=== PATIENT | female | born 1955 | race Caucasian/White ===

== ENCOUNTER → 2017-01-13 | Day surgery (SDC) | payer OTHER ==
[2017-01-13] VITALS (11 sets, daily range): BP systolic 99–125; BP diastolic 60–74; PULSE 74–83; RESP 11–16; O2SAT 95–98
[~2017-01-13] VITALS: Ht 170.2 cm; Wt 77.7 kg
[~2017-01-13] MED LIST: 0.9% Sodium Chloride 250 ML BOLUS IV PRN; 0.9% Sodium Chloride 400 ML (4 HRS) IV ONE; Atropine 1 mg/10 mL (Code) Syringe IVPUSH PRN; CALC117719 PO; FURO-129 PO; Heparin 1,000 Units/500 mL NS Premix IV ONE; Heparin 10,000 Unit/1,000 mL NS Premix IV ONE; INDO50CA PO; OMEP20TA86 PO; Ondansetron 2 mg/mL 2 mL Inj IVPUSH PRN; PRAV10TA2 PO; Sodium Chloride LOK Flush 10 mL Syringe IVFLUSH PRN; TRAM50TA2 PO; fentaNYL-PF 50 mCg/mL 2 mL Inj ONE
[2017-01-13 12:36] LABS: BASOPHILS % (AUTO) 0.2 % (0-3); EOSINOPHILS % (AUTO) 1.8 % (0-5); MONOCYTES % (AUTO) 7.6 % (4-12); Mean Corpuscular Volume 87.1 fL (81-100); NEUTROPHILS % (AUTO) 55.6 % (40-74); Platelet Count 244 bil/L (150-400)
--- NOTE | 2017-01-13 13:19 | NUR ---
Admit [facility] Admitted to [facility] 8 about 1145. VSS. Tele SR. Denies pain. IVs started and labs sent. See EMR for further info and assessment. Procedure and recovery reviewed and verbalizes understanding. All communication through vice president of compliance. Awaiting labor supervisor.
--- NOTE | 2017-01-13 17:14 | NUR ---
Received Received from labor and delivery registered nurse at 1520. VSS. States minimal groin pain. Tylenol 975mg po given and states slightly helpful. Right groin without bleeding or hematoma. Groin precautions reviewed and frequent reminders given. Questions answered prn. Taking po well. IVF infusing per orders. Report to Yoseph Morse RN at 2595. Bedside check done.
--- NOTE | 2017-01-13 19:30 | NUR ---
Pt discharged to home, ambulatory, accompanied by family. Rt groin site tender but soft with no bleeding/hematoma noted. Pt's VSS, given all discharge instructions through family and portable sawmill operator. Pt had no further questions at time of d/c.
--- NOTE | 2017-01-17 10:11 | CS94 ---
[address] [address] DIAGNOSTIC CARDIAC CATHETERIZATION PATIENT: JAZMYN DOCKERY : 1955 MR#: [id number] ADMIT: 01/13/2017 JOB ID: [id number] SERVICE DATE: 01/13/2017 CHIEF COMPLAINT: Chest pain and abnormal stress test. PROCEDURES PERFORMED: 1. Left heart catheterization-selective coronary angiograms. 2. Right common femoral artery vascular access under ultrasound guidance. 3. Hemodynamic recording. METHOD: Following informed consent, the patient was prepped and draped in usual sterile fashion. A 6-Divehi sheath was placed in the right common femoral artery via femoral angiogram. Sheath placement was confirmed. JL4 and JR4 catheters were used to engage the left main and right coronary artery ostia, respectively. Hand injection craniocaudal angulation were used to obtain selective coronary angiograms. All exchanges were performed over a wire. FINDINGS: Right common femoral artery gives rise to SFA and profunda. The sheath enters the right common femoral artery at the upper 3rd of the femoral head. There is no contrast extravasation or dissection. The visualized portions of the SFA, profunda and common femoral artery are free of disease. CORONARY ANGIOGRAM: Left main is a normal caliber vessel, gives rise to LAD and circumflex. No obstructive lesions are seen. The left main gives rise to LAD, circumflex and ramus intermedius. No obstructive lesions are seen. The LAD gives rise to a large first diagonal branch, a large second diagonal branch, a large third diagonal branch. It is free of disease. The circumflex is a nondominant vessel. It gives rise to a small first OM, small second obtuse marginal branch and a very small third obtuse marginal branch. No obstructive lesions are seen. Ramus intermedius is a large vessel. It has no obstructive disease whatsoever. Right coronary artery is a normal caliber vessel, gives rise to PDA and posterolateral branch. No obstructive lesions are seen. FILLING PRESSURE: Filling pressure is 20 mmHg. There is no aortic stenosis based on pullback. Hemostasis-obtained via Angio-Seal closure device. IMPRESSION: No obstructive coronary artery disease. Her stress test is a false positive. Recommend Lasix to lower the filling pressure and see if that helps with her exertional dyspnea, and she is optimized for surgery from a cardiovascular standpoint. Thank you very much for the opportunity to evaluate her.
== END | disposition home or self-care (01) ==
LOC: SOUO 01:23
PROVIDERS: ATTEND Internal Medicine
DX: R94.39 Abnormal result of other cardiovascular function study (principal); R06.09 Other forms of dyspnea; E78.5 Hyperlipidemia, unspecified; I35.1 Nonrheumatic aortic (valve) insufficiency
CPT/HCPCS: 36415; 80048; 85025; 93005; 93458; 99152; C1760; C1769; J1200; J1644; J2060; J2250; J3010; J7030; Q9967

== ENCOUNTER 2017-01-23 21:26 | Emergency (ER) | payer OTHER ==
[~2017-01-23] VITALS: Ht 170.2 cm; Wt 77.7 kg
[~2017-01-23 21:26] MED LIST changes: -0.9% Sodium Chloride 250 ML BOLUS IV PRN; -0.9% Sodium Chloride 400 ML (4 HRS) IV ONE; -Atropine 1 mg/10 mL (Code) Syringe IVPUSH PRN; -Heparin 1,000 Units/500 mL NS Premix IV ONE; -Heparin 10,000 Unit/1,000 mL NS Premix IV ONE; -OMEP20TA86 PO; -Ondansetron 2 mg/mL 2 mL Inj IVPUSH PRN; -Sodium Chloride LOK Flush 10 mL Syringe IVFLUSH PRN; -fentaNYL-PF 50 mCg/mL 2 mL Inj ONE
[2017-01-23 21:34] VITALS: BP 178/108; PULSE 100; RESP 16; O2SAT 100
--- NOTE | 2017-01-23 23:03 | ED.REPORT ---
HPI-General Illness Date of Service Jan 23, 2017 ED Provider: Olman Rosen MD Pt is a 61 y/o female with a history of hypertension, and CHF who presents to ED c/o intermittent chest pain onset last night. She had a cardiac catheterization on 01/13/[address] Chan noticed increased filling pressure, otherwise the catheterization was normal. Echocardiogram was likewise normal. Additional symptoms include SOB, neck pain, dizziness, and abdominal bloating. She denies melena, hematochezia, dysuria, diaphoresis, nausea, vomiting, or diarrhea. She has had similar episodes of chest pain previously. Nursing Notes Stated Complaint: SOB,PRESSURE IN CHEST Chief Complaint: Chest Pain Nursing Notes Reviewed: Yes Allergies: Coded Allergies: aspirin (Verified Allergy, Severe, Dizziness, 01/23/17) methocarbamol (Verified Allergy, Severe, Abdominal Pain, 01/23/17) oxycodone (Verified Allergy, Severe, Dizziness, 01/23/17) Scheduled Furosemide (Lasix) 20 Mg Tablet 20 MG PO DAILY Omeprazole (Omeprazole) 20 Mg Tablet.dr 20 MG PO BID Pravastatin (Pravastatin) 10 Mg Tablet 10 MG PO HS Scheduled PRN Calcium Carbonate (Tums Ultra Strength) 1,177 Mg Tab.chew 2,000 MG PO PRN For Dyspepsia or Heartburn Indomethacin (Indomethacin) 50 Mg Capsule 50 MG PO TID PRN PRN For Pain Tramadol (Tramadol) 50 Mg Tablet 50 MG PO Q12HR PRN PRN For Pain General Time Seen by MD: 23:03 Chief Complaint Chest pain Hx Obtained From: Patient, Son Arrived By: Walk-in Sudden in Onset?: No Onset Occurred: Yesterday Symptom Duration: Intermittent Location: : Chest Quality: Painful Radiation: : Does not radiate Severity: Current: Mild Severity: Maximum: Moderate Recent Healthcare: Recent doctor visit, Recent hospitalization Similar Sx Previous: No Past Medical History Past Medical History Notes: 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 canal Past Medical History Heart attack Back injury Depression Reports: Congestive heart failure, Coronary artery disease, Hypertension Past Surgical History Cardiac catheterization on 01/13/17 Eye surgery Pterygium removal Reports: Hysterectomy Smoking History Never Smoker Social History Alcohol Use: Denies alcohol use Drug Use: Denies drug use Other Social History: Good social support Ambulatory Status Independent Review of Systems Abdominal bloating Full Review of Systems Respiratory: Reports: Shortness of breath Cardiovascular: Reports: Chest pain (intermittent) GI: Denies: Diarrhea, Hematochezia, Melena, Nausea, Vomiting Female: Denies: Dysuria Musculoskeletal: Reports: Neck pain Skin: Denies Diaphoresis Neurologic: Reports: Dizziness Complete sys rev & neg: except as marked. Physical Exam Vital Signs Vital Signs Date Time Temp Pulse Resp B/P Pulse Ox O2 Delivery O2 Flow Rate FiO2 01/24/17 02:07 36.8 78 16 148/82 98 Room Air 01/23/17 21:34 36.8 100 16 178/108 100 Room Air Initial VS: Reviewed Head / Eyes: Atraumatic, Normocephalic Neck: Supple, Full range of motion Abdomen / GI: Soft, Non-tender Extremities: Vascular intact, Neuro intact, No swelling, No tenderness Skin: Warm, Dry, No cyanosis Neurologic: Alert, Oriented, Nonfocal Psychiatric: Mood/affect normal, Behavior normal, Normal thought content General/Constitutional: Awake, Alert Respiratory / Chest: Atraumatic, Breath sounds NL, Breath sounds = bilat, No respiratory distress Cardiovascular: Heart rate NL, Regular rhythm, Heart sounds NL Interpretation & Diagnostics CT PULMONARY ANGIOGRAM Conclusion: No evidence of pulmonary embolism or aortic dissection. Interpret - Radiologist Lab Results Interpretation Result Diagram: 01/23/17 2300 01/23/17 2300 Test 01/23/17 23:00 01/23/17 23:03 01/24/17 01:22 White Blood Count 8.5th/mm3 (3.8-10.1) Red Blood Count 4.64mil/mm3 (3.90-5.20) Hemoglobin 13.9g/dL (12.0-15.6) Hematocrit 39.8% (35.0-46.0) Mean Corpuscular Volume 85.8fL (81-100) Mean Corpuscular Hemoglobin 30.0pg (27.0-35.0) Mean Corpuscular Hemoglobin Concent 34.9% (32.0-37.0) Red Cell Distribution Width 12.6% (12.3-15.4) Platelet Count 276bil/L (150-400) Neutrophils (%) (Auto) 60.7% (40-74) Lymphocytes (%) (Auto) 30.3% (14-46) Monocytes (%) (Auto) 7.0% (4-12) Eosinophils (%) (Auto) 1.5% (0-5) Basophils (%) (Auto) 0.4% (0-3) D-Dimer 0.76mg/L FEU (<0.50) Sodium Level 136mEq/L (134-144) Potassium Level 4.1mEq/L (3.5-5.2) Chloride Level 98mEq/L (97-108) Carbon Dioxide Level 20mmol/L (18-29) Blood Urea Nitrogen 22mg/dL (8-27) Creatinine 0.89mg/dL (0.57-1.00) Estimat Glomerular Filtration Rate 92mL/min (>59) Glucose Level 124mg/dL (60-99) Calcium Level 9.1mg/dL (8.5-10.1) Magnesium Level 2.0mg/dL (1.6-2.6) Total Bilirubin 0.4mg/dL (0.0-1.2) Aspartate Amino Transf (AST/SGOT) 45U/L (0-50) Alanine Aminotransferase (ALT/SGPT) 42U/L (0-32) Alkaline Phosphatase 107U/L (25-165) Troponin T < 0.010ug/L (0.0-0.011) Pro-B-Type Natriuretic Peptide 54.34pg/mL (0-287) Total Protein 7.5g/dL (6.4-8.4) Albumin 4.4g/dL (3.4-5.0) Hold Leonardo Top Tube Received (Received) Hold Urine Received (Received) ECG Interpretation ECG Interpretation: Sinus rhythm, rate 93 Time: 21:52 Interpreted by: ED physician X-Ray Chest Interpretation Chest Xray Interpretation: Normal: no cardiomegaly or pneumonia appreciated View: Portable, 1 view Interpretation / Wet Read by: Wet read ED physician Re-Eval/Medical Decision Med Decision/Clinical Course 61-year-old presents with some sense of breathlessness and pressure, basically continuously for the past three days. Recent catheterization was completely clean. An echo was negative. Stress echo raise some question of mild hypokinesis in the posteroinferior area, but this was not borne out by regular echo nor by cath. She does not appear to have any significant cardiac disease. Mild increase in LV filling pressures noted and may have been secondary to fluid overload. She has responded to Lasix, but continues to have intermittent discomfort of the same sort. D-dimer was elevated but a CT angiogram is negative. I suspect, after all this and on, that her symptoms are esophageal in nature. Begun with omeprazole twice a day. Follow-up with Dr. Chan. Return promptly for any worsening symptoms or other new symptoms of concern. Source of Hx: Old records Time of Eval: 01:55 Patient Status: Condition improved Re-Evaluation/Progress Note: Patient rechecked. Discussed plan for discharge. Patient understands and agrees with plan. F/U instructions and RTER warnings given. All questions addressed at this time. Counseled Regarding: Diagnosis, Lab results, Need for follow-up, When/why to return to ED Discharge & Departure Shift Change Sign-Out Response to Therapy: Improved Primary Impression: Non-cardiac chest pain Additional Impression: Esophageal spasm Disposition: Home Discharge Condition All VS Reviewed: Yes Condition: Stable Patient Instructions: Noncardiac Chest Pain (ED) Additional Instructions: Your catheterization test was completely normal. There was no evidence of any blockage anywhere in the heart. They noted some slight increase in the filling pressures of your ventricle, and the Lasix is aimed at reducing that. There is also no evidence of clot in your lung. There is no evidence of any other dangerous cause for her discomfort. Follow-up with your doctor in the office. Return if any new symptoms of concern develop. In the meantime, I recommend suppression of your stomach acid, as esophageal spasm from reflux can cause very similar symptoms. La prueba de cateterizacin fue completamente normal. No haba evidencia de cindy n bloqueo en el corazn. Notaron un ligero aumento en las presiones de llenado de ruano ventrculo, y el Lasix tiene amarilis objetivo reducir eso. Tampoco hay evidencia de cogulo en el pulmn. No hay evidencia de otra causa peligrosa para ruano malestar. Sayda un seguimiento con ruano mdico en la oficina. Regresar si aparecen nuevos sntomas de preocupacin. Mientras tanto, recomiendo la supresin de ruano cido estomacal, amarilis espasmo esof gico de reflujo puede causar sntomas muy similares. Referrals: Debbie Rolon (PCP) Erica Chan MD Scribe Attestation Portions of this note were transcribed by Debbie Ring. I, Dr. Rosen, personally performed the history, physical exam and medical decision-making; I reviewed and confirmed the accuracy of the information in the transcribed note. copies to: Erica Chan MD; Debbie Rolon Christopher W MD Jan 23, 2017 23:03 Debbie Ring Jan 23, 2017 23:11
[2017-01-23 23:04] LABS: BASOPHILS % (AUTO) 0.4 % (0-3); EOSINOPHILS % (AUTO) 1.5 % (0-5); Mean Corpuscular Volume 85.8 fL (81-100); NEUTROPHILS % (AUTO) 60.7 % (40-74); Platelet Count 276 bil/L (150-400)
[2017-01-23 23:36] LABS: TROPONIN T < 0.010 ug/L (0.0-0.011)
[2017-01-24] MEDS ORDERED: OMEP20TA86 PO (01:33)
[2017-01-24 02:07] VITALS: BP 148/82; PULSE 78; RESP 16; O2SAT 98
--- NOTE | 2017-01-24 10:14 | DRSVH ---
PROCEDURE: X-RAY CHEST ONE VIEW, PORTABLE ([id number]) INDICATIONS: pain IN CHEST TECHNIQUE: One view of the chest was acquired. COMPARISON: SHAISTA Cam, XR CHEST 2VW, 02/10/2016, 9:03. FINDINGS: Surgical changes and devices: None. Lungs and pleura: No pleural effusions or pneumothorax. Lungs are clear. Mediastinum: Mediastinal contours appear normal. Heart size is normal. Bones and chest wall: No suspicious bony lesions. Overlying soft tissues appear unremarkable. IMPRESSION: No acute disease Dictated by: Jacob Parisi M.D. on 01/24/2017 at 9:12 Approved by: Jacob Parisi M.D. on 01/24/2017 at 9:13
--- NOTE | 2017-01-24 11:28 | DRSVH ---
PROCEDURE: CT ANGIO CHEST PULMONARY EMBOLISM ([id number]) INDICATIONS: sob, elevated d dimer TECHNIQUE: After the administration of intravenous contrast, 2 mm thick sections acquired from the pulmonary api edie to the posterior costophrenic angles. 3-dimensional maximum intensity projection (MIP) coronal a nd sagittal reformats were then acquired through the thorax. For radiation dose reduction, the follo wing was used: automated exposure control, adjustment of mA and/or kV according to patient size. COMPARISON: None. FINDINGS: Image quality: Excellent. Pulmonary arteries: Pulmonary arteries are normal in size, and demonstrate no intraluminal filling d efects to suggest central pulmonary embolism. Lungs and pleura: Lungs are clear. No pleural effusions or pneumothorax. Central and peripheral ai rways are patent. Mediastinum: Heart size is normal, without pericardial effusion. No mediastinal or hilar adenopathy . Thoracic aorta is normal in caliber and enhancement. Esophagus is normal in caliber, without hiat al hernia. Bones and chest wall: No suspicious bony lesions. Ribs and thoracic spine appear intact throughout. Thyroid gland is unremarkable. No axillary or supraclavicular adenopathy. Abdomen: Visualized upper abdominal solid organs appear normal in the early arterial phase of enhanc ement. IMPRESSION: 1. No visualized pulmonary embolism. Lungs are clear. 2. No aortic dissection. Dictated by: Tamia Islas M.D. on 01/24/2017 at 11:25 Approved by: Tamia Islas M.D. on 01/24/2017 at 11:27
== END 2017-01-24 02:10 | disposition home or self-care (01) ==
LOC: SED 21:26
DX: R07.89 Other chest pain (principal); K22.4 Dyskinesia of esophagus; R06.02 Shortness of breath; M54.2 Cervicalgia; R42 Dizziness and giddiness; I11.0 Hypertensive heart disease with heart failure; I50.9 Heart failure, unspecified; I25.10 Atherosclerotic heart disease of native coronary artery without angina pectoris; F32.9 Major depressive disorder, single episode, unspecified; Z90.710 Acquired absence of both cervix and uterus; Z88.5 Allergy status to narcotic agent; Z88.8 Allergy status to other drugs, medicaments and biological substances
CPT/HCPCS: 36415; 71010; 71275; 80053; 83735; 83880; 84484; 85025; 85378; 93005; 99285; Q9967